=== PATIENT | female | born 1975 | race Caucasian/White ===

== ENCOUNTER 2021-10-17 06:04 | Day surgery (SDC) | payer OTHER ==
[~2021-10-17] VITALS: Ht 157.5 cm; Wt 69.1 kg
[~2021-10-17 06:04] MED LIST: SODIUM CHLORIDE 0.9% 1,000 ML ONE
[2021-10-17] MEDS ORDERED: LIDOCAINE/PF 2% 5 ML VIAL IM ONE (06:05)
[2021-10-17] MEDS ORDERED: PROPOFOL 1% 20 ML VIAL IVP ONE (06:05)
[2021-10-17] MEDS ORDERED: SODIUM CHLORIDE 0.9% 1,000 ML IV ONE (06:30)
[2021-10-17 06:45] LABS: COVID AG,FIA SOURCE NASOPHARYNGEAL
== END 2021-10-17 09:45 | disposition home or self-care (01) ==
LOC: SURGERY 06:04
PROVIDERS: ATTEND Surgery
DX: Z12.11 Encounter for screening for malignant neoplasm of colon (principal); K57.30 Diverticulosis of large intestine without perforation or abscess without bleeding; E78.00 Pure hypercholesterolemia, unspecified; Z98.890 Other specified postprocedural states; Z90.710 Acquired absence of both cervix and uterus; Z79.899 Other long term (current) drug therapy
CPT/HCPCS: 45378; 87426; C9803; J2704; J3490; J7030